=== PATIENT | female | born 1955 | race Caucasian/White ===

== ENCOUNTER → 2017-04-16 | Day surgery (SDC) | payer OTHER ==
[~2017-04-16] VITALS: Ht 179.1 cm; Wt 122.5 kg
[~2017-04-16] MED LIST: 0.9% Sodium Chloride 1,000 ML IV SCH; CALC-762 PO; HYDR-4003 PO; MELO7.5O PO; MULT-1018 PO; ONDA-53 PO; SERT20OR6 PO; Sodium Chloride LOK Flush 10 mL Syringe IV PRN; TIZA4TAB4 PO; TRIA1CAP5 PO; fentaNYL-PF 50 mCg/mL 2 mL Inj IVPUSH PRN
[2017-04-16 14:59] VITALS: BP 144/84; PULSE 72; RESP 15; O2SAT 95
--- NOTE | 2017-04-16 15:34 | PCM.ENDCOL ---
Colonoscopy Date of Service: Apr 16, 2017 Physician Hayes Krueger MD Pre Procedure Diagnosis: Screening Post Procedure Dx & Findings: Diverticuli hemorrhoids Procedure Colonoscopy PROCEDURE IN DETAIL: Prep adequate Withdrawal time 14 minutes After unremarkable rectal examination the Olympus video colonoscope was inserted patient's anal canal and was advanced to cecum. Landmarks were identified including the ileocecal valve and appendiceal orifice. Scope was withdrawn systematically. Visualized colonic mucosa showed healthy shiny mucosa with normal healthy-appearing vasculature. In the sigmoid colon and to some extent in the descending colon, several small to medium diverticula noted. In the rectum retroflexion was done which showed hemorrhoids. Anal canal was inspected carefully on the way out and hemorrhoids noted. Impression No family history or personal history of colon cancer or polyp Diverticuli Hemorrhoids Recommendation Repeat colonoscopy in 10 years Diverticular diet Presedation Assessment Risks and Benefits Informed consent was obtained from the patient after all risks and benefits including but not limited to drug reaction, infection, pain, bleeding, perforation, as well as alternatives were discussed. Patient monitoring Continuous pulse oximetry, cardiac monitoring, blood pressure monitoring, IV access, and oxygen at 2L per nasal cannula. Periprocedural Fentanyl: Fentanyl 100mcg Incrementally Midazolam: Midazolam 5mg Incrementally Complications There were no periprocedural complications identified. Post Procedure Plan Post Procedure Recommendations 1. Restrict activities today. 2. Resume normal activities in the morning. 3. Resume medications. 4. Patient informed of normal post procedure side effects as bloating, drowsiness, blood streaking in the stool. 5. average risk CRCS. If colon polyps come back as: -Hyperplastic- can repeat colonoscopy in 10 years -Tubular adenoma- repeat colonoscopy in 5 years -Tubulovillous/villous adenoma- repeat colonoscopy in 3 years -If any dysplasia- return to clinic as soon as possible 6. Please don't hesitate to call me with any questions. Hayes Krueger MD Apr 16, 2017 15:34
[2017-04-16 15:37] VITALS: BP 145/80; PULSE 67; RESP 12; O2SAT 91
[2017-04-16 15:55] VITALS: BP 134/82; PULSE 70; RESP 12; O2SAT 94
[2017-04-16 15:56] VITALS: BP 125/76; PULSE 67; RESP 12; O2SAT 94
== END | disposition home or self-care (01) ==
LOC: END 00:41
PROVIDERS: ATTEND Internal Medicine
DX: Z12.11 Encounter for screening for malignant neoplasm of colon (principal); K57.30 Diverticulosis of large intestine without perforation or abscess without bleeding; K64.8 Other hemorrhoids; I10 Essential (primary) hypertension
CPT/HCPCS: 99153; G0121; G0500; J2250; J3010; J7030